=== PATIENT | male | born 1980 | race Hispanic/Latino ===

== ENCOUNTER 2024-09-22 18:24 | Emergency (ER) | payer BC ==
[~2024-09-22] VITALS: Ht 165.1 cm; Wt 99.3 kg
[2024-09-22 18:43] VITALS: PULSE 93; RESP 17; TEMP 97.8
[2024-09-22 19:19] VITALS: BP 151/88; PULSE 93; RESP 17; TEMP 97.8; O2SAT 97
== END 2024-09-22 19:14 | disposition home or self-care (01) ==
LOC: FSED 18:45
DX: R10.32 Left lower quadrant pain (principal); R10.31 Right lower quadrant pain; S39.011A Strain of muscle, fascia and tendon of abdomen, initial encounter; E66.9 Obesity, unspecified
CPT/HCPCS: 99282